=== PATIENT | female | born 1975 | race Caucasian/White ===

== ENCOUNTER 2016-12-13 13:30 | Observation (INO) | payer OTHER ==
--- NOTE | ~2016-12-13 | CT4 ---
[facility] A Service of [facility] & [facility] RADIOLOGY TEXT RESULTS PATIENT: JONO BIRD LOCATION: C2A : [birth year] UNIT #: [id number] AGE: [address]: PIETRO MARTINEZ JR MD SEX: F ORDER DR: [id number] [facility] [address] [facility]. [place], [place] [address] [id number] I MR#: [id number] #: [id number] NAME: JONO BIRD : 1975 SEX: F STUDY DATE/TIME: 12/13/2016 15:39 UNIT: C2A ROOM: [place] STUDY DESCRIPTION: CT Abd and Pelv Wo Cont Attending Physician: Pietro Martinez M.D. Ordering Physician: Jordan Richter M.D. MEDICAL IMAGING REPORT This report is preliminary unless electronic signature is present EXAM CT abdomen and pelvis without IV contrast. COMPARISON March 30, 2013, and January 26, 2013. INDICATIONS 41-year-old female with left flank and back pain as well as pleuritic chest pain for [address] exam was performed with one or more of the following radiation dose reduction techniques: automatic exposure control, adjustment of mA and/or kV according to patient size, and iterative reconstruction. FINDINGS Axial CT imaging abdomen and pelvis was performed without IV contrast. Coronal and sagittal reformats were constructed. Lack of IV contrast limits evaluation of adenopathy, vasculature and viscera. Multilevel mild degenerative facet disease of the lumbar spine. No acute fractures or suspicious osseous lesions. There are stable scarring versus atelectasis in the right lower lobe. There is a band-like atelectasis in the dependent left lower lobe. Gallbladder is contracted, limiting evaluation. No evidence of acute cholecystitis or radiopaque cholelithiasis. There is a tiny low-density area in the liver at the junction of the right and left hepatic lobes, measuring up to 3 mm, stable from March 2013, favoring a benign cyst or hemangioma. There is new marked left hydronephrosis with multiple renal calculi seen within the dilated calyces, as well as within the dilated pelvis. Some of these calculi appear to have formed facets and appear to be abutting each other. These findings are new from 2013. There is enlargement of the left kidney with thinning of the left renal cortex. There is a conglomerate of STS. [facility] A Service of [facility] RADIOLOGY TEXT RESULTS PATIENT: JONO BIRD LOCATION: [facility] [address] : [birth year] UNIT #: [id number] AGE: [address]: PIETRO MARTINEZ JR MD SEX: F ORDER DR: calculi seen in the renal pelvis measuring up to 3.5 cm x 2.7 cm with apparent rim-calcified calculus developing in the superior left renal kevin, measuring up to 2.9 cm. There is also an obstructing calculus in the proximal left ureter measuring up to 6 mm. The remainder of the left ureter is decompressed. Urinary bladder is decompressed. No evidence of right ureteral calculi. There are bilateral pelvic phleboliths. No definite adnexal masses on this noncontrast exam. There has been prior partial resection of the sigmoid colon. There is left perinephric stranding which appears mildly increased from comparison. Spleen is unremarkable. Unenhanced pancreas is within normal limits. The right adrenal gland is normal. There are multiple enlarged left retroperitoneal lymph nodes, the largest of which measures up to 2 cm per axis. Left adrenal gland appears to be displaced superiorly, but is, otherwise, normal. There is hepatomegaly. There appears to have been prior right hemicolectomy. No free fluid or pneumoperitoneum. Abdominal aorta is normal in course and caliber. IMPRESSION 1. New obstructive 6 mm calculus in the proximal left ureter. The left kidney is now markedly abnormal with enlargement and severe increasing left hydronephrosis and dilatation of the left renal pelvis. There are multiple calculi in the left renal pelvis in conglomerate measuring up to 3.5 cm x 2.7 cm with rim calcified calculus in the dilated superior pole renal kevin, measuring up to 2.9 cm with other calyceal calculi as well in the left kidney. There is increasing left perinephric stranding. 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 Urologic consultation is recommended. One could consider CT or MRI with IV contrast to further evaluate the kidney and exclude any suspicious masses on the left. 2. Stable 3 mm low-density lesion in the liver, most likely a benign cyst or hemangioma. 3. Prior partial sigmoid resection and right hemicolectomy. 4. Increasing adenopathy in the left retroperitoneum, largest lymph node measures up to 2 cm short axis. Given findins in the left kidney, neoplasm is thought less likely, and these findings are favored be reactive. Dictated by... Alistair Walker M.D. THIS IS AN ELECTRONICALLY VERIFIED REPORT Alistair Walker M.D. at 12/17/2016 4:27 PM CHARMAINE/court TD: 12/13/2016 17:24 JOB #: [id number] [facility] A Service of [facility] & [facility] RADIOLOGY TEXT RESULTS PATIENT: JONO BIRD LOCATION: [place] [address] : [birth year] UNIT #: [id number] AGE: [address]: PIETRO MARTINEZ JR MD SEX: F ORDER DR: MEDICAL IMAGING REPORT Page 1 of 1 COPY
--- NOTE | ~2016-12-13 | CO ---
Unit #: [id number] #: [id number] Patient: JONO BIRD [id number] [address] [place], [place] [address] [id number] I MR#: [id number] NAME: JONO BIRD ROOM: 215 Age: 41 Sex: F Admission Date: 12/13/2016 : 1975 Attending Physician: Tushar Martinez M.D. Consultation Date: 12/14/2016 CONSULTATION REPORT CHIEF COMPLAINT Left flank pain. HISTORY OF PRESENT ILLNESS Ms. Bird is a pleasant 41-year-old female, who presented to the ER last night with severe left-sided flank pain. She reports that the pain has been present for approximately 10 days and had been constant over that period of time. The pain was sharp in nature, localized to her left flank region, intermittent in nature, sharp and stabbing. She reports she had some mild nausea and one to two episodes of emesis over the past 10 days associated with pain. No gross hematuria. No previous history of kidney stones. She does have a history of left dismembered pyeloplasty [place] [address] Smith. She also has a history of colectomy and breast augmentation. In the ER, her creatinine was 0.8, her urinalysis demonstrated large leukocyte esterase, and positive nitrites, as well as 50 to 100 white cells per high-power field. Her white blood cell count was 12.6. CT scan demonstrated a 6-mm left UPJ stone with moderate hydronephrosis. PAST MEDICAL HISTORY Urinary tract infections, history of UPJ obstruction, ureteral stone. PAST SURGICAL HISTORY 1. Colectomy, status post colostomy revision. 2. Left dismembered pyeloplasty in 2013. 3. Breast augmentation. SOCIAL HISTORY One [id number] smoking history, denies drug use. FAMILY HISTORY No history of kidney stones. REVIEW OF SYSTEMS No headaches. Hearing normal. No epistaxis. No palpitations or chest pain. No shortness of breath. Denies joint pain. No recent skin rashes. No swollen glands or ankle swelling. No problems with vision. No sore throat. No anxiety or depression. No constipation. No black or bloody stools. review of systems is as above. MEDICATIONS None. ALLERGIES Unit #: [id number] #: [id number] Patient: JONO BIRD Penicillin, morphine. PHYSICAL EXAMINATION VITAL SIGNS: BP 145/93, heart rate 101, respiratory rate 18, temp 97.9. GENERAL: No apparent distress, comfortable, appears stated age. HEENT: Head is atraumatic. Normal hearing. Pupils are equal, round, and responsive to light. NECK: Supple, trachea midline. RESPIRATORY: Normal respiratory effort. Normal to palpation. CARDIOVASCULAR: Regular rate and rhythm, normal carotid pulses. ABDOMEN: Soft, left upper quadrant tenderness, left CVA tenderness. Nondistended. EXTREMITIES: No edema, no clubbing. SKIN: Warm and dry. NEUROLOGIC: Cranial nerves grossly intact. PSYCHIATRIC: Normal mood, normal affect. DIAGNOSTIC STUDIES LABORATORY RESULTS: As above. IMAGING STUDIES: As above. ASSESSMENT AND PLAN Ms. Bird is a 41-year-old female with a left obstructing ureteropelvic junction calculus. We discussed options for management, and given her active urinary tract infection, I will recommend that she undergo cystoscopy and left ureteral stent placement. She concurred. She understands that the stent is temporary and she will need additional surgeries to treat her stones. We will plan to keep her on IV Rocephin while cultures are pending. Dictated by... Chante Freeman/kennedy TD: 12/15/2016 02:02 JOB #: [id number] CONSULTATION REPORT Page 1 of 1 X X CONSULTATION REPORT
--- NOTE | ~2016-12-13 | OR ---
Unit #: [id number] #: [id number] Patient: JONO BIRD [id number] [address] [address] [id number] I MR#: [id number] NAME: JONO BIRD ROOM: [facility] Date of Procedure: 12/14/2016 Admission Date: 12/13/2016 Surgeon: Tushar Martinez M.D. : 1975 Attending Physician: Tushar Martinez M.D. OPERATIVE REPORT PREOPERATIVE DIAGNOSIS Left ureteral stone. POSTOPERATIVE DIAGNOSIS Left ureteral stone. PROCEDURES PERFORMED Cystoscopy; left retrograde pyelogram, independently reviewed by me; left ureteral stent placement. ANESTHESIA General. ESTIMATED BLOOD LOSS Minimal. COMPLICATIONS None. FINDINGS Severe hydronephrosis. Purulent renal pelvis aspirate, which was sent for culture. DESCRIPTION OF PROCEDURE After informed consent was obtained, the patient was taken to the operating room. General anesthesia was induced. She was placed in lithotomy position, prepped, and draped in standard fashion. Time-out was performed and all team members were in agreement. The rigid cystoscope was passed through the urethral meatus into the bladder without difficulty. The bladder was inspected carefully and demonstrated no tumors, stones, or foreign bodies. The left ureteral orifice was identified and was orthotopic. A Sensor wire was passed through the left ureteral orifice followed by a Pollack catheter. A retrograde pyelogram was then performed, which demonstrates a severe hydronephrosis down to the level of the UPJ. The hydronephrosis was severe. There was no clear opacity at the UPJ consistent with her known stone. Next, a 6 x 24 double-J ureteral stent was placed. No tether was left on the stent. The bladder was then drained and the procedure was terminated. Dictated by... Tushar Martinez M.D. Unit #: [id number] #: [id number] Patient: JONO BIRD JANENE/kennedy TD: 12/14/2016 22:27 JOB #: [id number] OPERATIVE REPORT Page 1 of 1 X X PROCEDURE OPERATIVE NOTE
--- NOTE | ~2016-12-13 | DS ---
Unit #: [id number] #: [id number] Patient: JONO BIRD [id number] [address] [address] [id number] I MR#: [id number] NAME: JONO BIRD ROOM: 215 Age: 41 Sex: F Admission Date: 12/13/2016 : 1975 Discharge Date: 12/16/2016 Attending Physician: Tushar Martinez M.D. Primary Care Physician: No Primary Care Physician DISCHARGE SUMMARY DIAGNOSIS Left ureteral stone. PROCEDURE Cystoscopy, left stent placement, retrograde pyelogram. PAST MEDICAL HISTORY Colectomy, pyeloplasty in 2013, breast augmentation. SOCIAL HISTORY Positive for smoking. Negative for drugs. FAMILY HISTORY Negative for stones. HOSPITAL COURSE The patient underwent cystoscopy and stent placement with Dr. Martinez. She will have outpatient treatment of her stone. She has a 6 mm proximal ureteral stone. The patient is to contact the office after she is discharged. She has a UTI with Proteus. She will be sent home on Bactrim and Pillager. The patient was afebrile today, tolerating p.o. intake well. ALLERGIES Penicillin and morphine. Dictated by... Ravindra Roberson M.D. STEPHANIE/audrey TD: 12/16/2016 12:49 JOB #: [id number] DISCHARGE SUMMARY Page 1 of 1 X Ravindra Roberson MD X DISCHARGE SUMMARY
[~2016-12-13 13:30] MED LIST: KEFLEX500 M1 PO; METRONIDAZOLE PO; NICOTINE TRANSD21 MG EXT; NORCO 5/325 TAB1 TAB PO; NORCO 7.5-3251 EACH PO; PERCOCET 10/3251 TAB PO; PERCOCET 7.5-31 EACH PO; PERCOCET 7.5/321 TAB PO; PERCOCET PO; XANAX1 MG PO
[2016-12-13 15:13] LABS: URINE SOURCE CLEAN CATCH
[2016-12-13 15:19] LABS: URINE APPEARANCE CLOUDY; URINE BILIRUBIN NEG (NEG); URINE BLOOD TRACE (NEG); URINE COLOR YELLOW; URINE GLUCOSE NEG (NEG); URINE KETONE NEG (NEG); URINE LEUKOCYTE ESTERASE 3+ (NEG); URINE NITRATE POS (NEG); URINE PROTEIN 1+ (NEG); URINE SPECIFIC GRAVITY 1.014 (1.003-1.035)
[2016-12-13 15:22] LABS: CULTURE INDICATED? YES; URINE BACTERIA AUWI 4+ (NEGATIVE); URINE SQUAMOUS EPITHELIAL CELL MOD /[HPF]; UWBCS1 AUWI 50-100 (0-5)
[2016-12-13 15:41] LABS: BASOPHIL% 0.1 % (0-2.5); EOSINOPHIL# 0.1 X10e3 (0-0.7); EOSINOPHIL% 0.6 % (0.0-7.0); HEMATOCRIT 41.2 % (35.0-45.0); HEMOGLOBIN 13.8 gm/dL (12.0-16.0); LYMPHOCYTE# 1.6 X10e3 (1.0-3.5); MEAN CELL VOLUME 82.5 FL (83-96); MEAN CORPUSCULAR HEMOGLOBIN 27.6 PG (28-34); MEAN CORPUSCULAR HGB CONC 33.4 g/dL (30-36); MEAN PLATELET VOLUME 7.4 FL (6.5-11.5); MONOCYTE# 0.9 X10e3 (0-1.0); MONOCYTE% 7.2 % (3.0-12.0); NEUTROPHIL% 79.1 % (40-75); PLATELET COUNT 383 X10e3 (140-420); RED CELL DISTRIBUTION WIDTH 14.9 % (11.0-15.5); WHITE BLOOD COUNT 12.6 X10e3 (4.0-10.5)
[2016-12-13 15:50] LABS: DIFF IND NO
[2016-12-13 16:00] LABS: CREATININE SERUM 0.8 mg/dL (0.6-1.4); POTASSIUM 3.2 mmol/L (3.5-5.1)
[2016-12-14 06:34] LABS: BASOPHIL% 0.3 % (0-2.5); EOSINOPHIL# 0.3 X10e3 (0-0.7); HEMATOCRIT 39.2 % (35.0-45.0); HEMOGLOBIN 12.6 gm/dL (12.0-16.0); LYMPHOCYTE# 2.7 X10e3 (1.0-3.5); MEAN CELL VOLUME 85.2 FL (83-96); MEAN CORPUSCULAR HEMOGLOBIN 27.5 PG (28-34); MEAN CORPUSCULAR HGB CONC 32.2 g/dL (30-36); MEAN PLATELET VOLUME 7.8 FL (6.5-11.5); MONOCYTE# 1.5 X10e3 (0-1.0); NEUTROPHIL# 10.3 X10e3 (1.5-7.1); NEUTROPHIL% 69.7 % (40-75); PLATELET COUNT 292 X10e3 (140-420); RED BLOOD COUNT 4.59 X10e (3.90-5.30); RED CELL DISTRIBUTION WIDTH 14.8 % (11.0-15.5); WHITE BLOOD COUNT 14.9 X10e3 (4.0-10.5)
[2016-12-14 06:38] LABS: DIFF IND NO
[2016-12-14 06:54] LABS: BUN/CREATININE RATIO 12.5; CALCIUM SERUM 8.2 mg/dL (8.4-10.2); CREATININE SERUM 0.8 mg/dL (0.6-1.4); POTASSIUM 3.4 mmol/L (3.5-5.1)
[2016-12-16 06:00] LABS: HEMATOCRIT 35.1 % (35.0-45.0); HEMOGLOBIN 11.5 gm/dL (12.0-16.0); MEAN CELL VOLUME 83.3 FL (83-96); MEAN CORPUSCULAR HEMOGLOBIN 27.3 PG (28-34); MEAN CORPUSCULAR HGB CONC 32.8 g/dL (30-36); MEAN PLATELET VOLUME 7.4 FL (6.5-11.5); RED BLOOD COUNT 4.21 X10e (3.90-5.30); RED CELL DISTRIBUTION WIDTH 15.4 % (11.0-15.5)
[2016-12-16] MEDS ORDERED: BACTRIM DS TAB1 EACH (08:50)
[2016-12-16] MEDS ORDERED: HYDROCODON-ACE1 EAC9 PO (08:50)
[2017-02-04] MEDS ORDERED: PERCOCET 7.5-31 EACH PO (14:36)
== END 2016-12-16 09:26 | disposition home or self-care (01) ==
LOC: CED 13:30 → CEDOF 19:52 → C2A 20:59
PROVIDERS: Emergency Medicine; Student in an Organized Health Care Education/Training Program; Urology
DX: N13.2 Hydronephrosis with renal and ureteral calculous obstruction (principal); N39.0 Urinary tract infection, site not specified; B96.4 Proteus (mirabilis) (morganii) as the cause of diseases classified elsewhere; F17.200 Nicotine dependence, unspecified, uncomplicated; Z88.0 Allergy status to penicillin; Z88.5 Allergy status to narcotic agent; K76.9 Liver disease, unspecified; Z90.49 Acquired absence of other specified parts of digestive tract
CPT/HCPCS: 36415; 74176; 80048; 81003; 84703; 85025; 85027; 87086; 87088; 87186; 96361; 96365; 96375; 96376; 99285; C2617; G0378; J0696; J1100; J1170; J1885; J2405; J2550; J3010

== ENCOUNTER → 2017-01-01 | Outpatient (CLI) | payer OTHER ==
[~2017-01-01] MED LIST changes: +BACTRIM DS TAB1 EACH; +HYDROCODON-ACE1 EAC9 PO; +PHENERGAN25 M1 PO
--- NOTE | ~2017-01-01 | NM29 ---
[facility] A Service of [facility] RADIOLOGY TEXT RESULTS PATIENT: JONO BIRD LOCATION: [facility] : [birth year] UNIT #: [id number] AGE: [address]: Jordan Smith MD SEX: F ORDER DR: [id number] [address] [place], [place] [address] [id number] O MR#: [id number] Acc #: [id number] NAME: JONO BIRD : 1975 SEX: F STUDY DATE/TIME: 01/01/2017 9:36 UNIT: [facility] ROOM: STUDY DESCRIPTION: NM Kidney Vasc Flow Sng W Attending Physician: Jordan Smith M.D. Referring Physician: Jordan Smith M.D. Ordering Physician: Jordan Smith M.D. Primary Care Physician: Armani Servin M.D. MEDICAL IMAGING REPORT This report is preliminary unless electronic signature is present EXAM Renal nuclear medicine flow and function study INDICATION Hydronephrosis. Evaluate renal function. COMPARISON CT scan 01/01/2017 which shows left hydronephrosis despite a double J ureteral stent. FINDINGS There are numerous calculi in the left renal pelvis. The patient was given 4.6 mCi of Tc99m MAG-3. Time activity curves were generated. The right kidney had normal flow and function reaching peak activity in 3 minutes and had a T-one-half of 12 minutes. The right kidney had 86% of the uptake. The left kidney shows very little accumulation. At 5 minutes, patient was given Lasix. There is very gradual decline of activity in the kidney. IMPRESSION 1. The right kidney is normal in flow and function and has 86% of the activity. 2. The left kidney has slow uptake after injection of the pharmaceutical. After Lasix was administered at 5 minutes, there is a very slow clearance from the kidney. T-one-half cannot be calculated. Dictated by... [facility] A Service of [facility] & [facility] RADIOLOGY TEXT RESULTS PATIENT: JONO BIRD LOCATION: [facility] : [birth year] UNIT #: [id number] AGE: [address]: Jordan Smith MD SEX: F ORDER DR: Dajuan Duran M.D. THIS IS AN ELECTRONICALLY VERIFIED REPORT Dajuan Duran M.D. at 01/02/2017 11:42 AM DANIEL/bel TD: 01/02/2017 07:08 JOB #: [id number] MEDICAL IMAGING REPORT Page 1 of 1 COPY
--- NOTE | ~2017-01-01 | CT3 ---
[facility] A Service of [facility] & [facility] RADIOLOGY TEXT RESULTS PATIENT: JONO BIRD LOCATION: [facility] : [birth year] UNIT #: [id number] AGE: [address]: Jordan Smith MD SEX: F ORDER DR: [id number] [place] [id number] [facility]. [place], [place] [address] [id number] O MR#: [id number] Acc #: [id number] NAME: JONO BIRD : 1975 SEX: F STUDY DATE/TIME: 01/01/2017 8:21 UNIT: [facility] ROOM: STUDY DESCRIPTION: CT Abd and Pelv WWo Cont Attending Physician: Jordan Smith M.D. Referring Physician: Jordan Smith M.D. Ordering Physician: Jordan Smith M.D. Primary Care Physician: Armani Servin M.D. MEDICAL IMAGING REPORT This report is preliminary unless electronic signature is present EXAM CT abdomen and pelvis with contrast HISTORY Left flank pain for 6 weeks and hematuria since December 12, 2016. Patient does have a history of kidney stones. TECHNIQUE Axial precontrast imaging was obtained through the abdomen and pelvis. This is followed by arterial and 90-second delayed phase imaging through the kidneys and 5-minute delayed-phase imaging through the abdomen and pelvis. This CT exam was performed with one or more of the following radiation dose reduction techniques: automatic exposure control, adjustment of mA and/or kV according to patient size, and iterative reconstruction. FINDINGS Images through the lung bases demonstrate scarring at the right lung base which is unchanged when compared to the prior study. A few tiny low-attenuation lesions are seen scattered throughout the liver which are suspected to reflect a benign lesion such as cysts and are unchanged since January of 2013. The stomach and proximal small bowel appear unremarkable. Gallbladder is within normal limits as are the spleen and pancreas. Patient is noted to have a punctate nonobstructing stone within the inferior pole of the right kidney. Since prior examination from November, a left-sided double-J ureteral stent has been placed. Multiple large stones are identified within the left renal collecting system. There is persistent dilatation of the left renal collecting system. On delayed phase imaging, patient is noted to have excreted contrast material outlining these dilated calyces and the left renal pelvis. There is some mild left perinephric soft tissue stranding. On prior study, the patient's kidney was much larger today. It appears STS. [facility] A Service of [facility] & [facility] RADIOLOGY TEXT RESULTS PATIENT: JONO BIRD LOCATION: [facility] : [birth year] UNIT #: [id number] AGE: [address]: Jordan Smith MD SEX: F ORDER DR: somewhat shrunken with marked cortical thinning. There is delayed and diminished enhancement of the left kidney when compared to the right but, again, patient does appear to have some function within that kidney as there is excreted contrast within the collecting system and also within the bladder. Patient is suspected to have some tiny cysts within the right kidney. There are postsurgical changes involving the sigmoid colon. There is no evidence mechanical bowel obstruction. Although there is extensive fecal burden seen within the colon which may reflect some underlying constipation, I do not see any free fluid or adenopathy within the abdomen. Urinary bladder appears normal. No aggressive osseous abnormalities are seen. Patient does have multiple cysts on the right ovary. Single largest measures up to 3.1 x 2.2 cm. IMPRESSION 1. This patient has undergone placement of a double-J ureteral stent on the left. On prior study, the patient's left kidney was enlarged and hydronephrotic. On today's study, it appears much smaller in size, although there is significant cortical thinning and persistent dilatation of the renal collecting system. There appears to be some form of debris within the left renal collecting system as excreted contrast material outlines it. Exact nature of this material is unclear. It really does not appear to enhance, which would argue against any neoplastic process, although that cannot be completely excluded as the patient is noted to have multiple shotty retroperitoneal nodes. I wonder if perhaps it is related to chronic inflammation within the left renal collecting system. Ultimately, biopsy may be required for definitive assessment. At a minimum, short-term CT follow up is recommended. The appearance on this particular exam is really not classic for XGP given that the kidney is not particularly enlarged, but XGP remains the main differential consideration, given dilatation of the left renal collecting system. 2. The kidney shows delayed and diminished enhancement, but it does have some function as, again, there is excreted contrast material within the left renal collecting system and within the bladder. 2. Patient is noted to have a nonobstructing stone within the inferior pole of the right kidney. 3. Suspected tiny right renal cysts. 4. Changes of prior sigmoid colon resection without evidence of obstruction although the patient does have fairly extensive fecal burden within the rectosigmoid which may reflect some constipation. 5. The patient is noted have several cysts on the right ovary. Single largest measures 3.1 x 2.2 cm. I suspect it is probably a benign finding in this 41-year-old woman as it was not present on the prior study from December 13, 2016. However a follow up pelvic ultrasound in 6 weeks could be considered to document stability or resolution. STAT * RESULT [facility] A Service of [facility] RADIOLOGY TEXT RESULTS PATIENT: JONO BIRD LOCATION: [facility] : [birth year] UNIT #: [id number] AGE: [address]: Jordan Smith MD SEX: F ORDER DR: Dictated by... Nadia Mcdonald M.D. THIS IS AN ELECTRONICALLY VERIFIED REPORT Nadia Mcdonald M.D. at 01/02/2017 9:44 AM AFF/aa TD: 01/01/2017 10:31 JOB #: [id number] MEDICAL IMAGING REPORT Page 1 of 1 COPY
== END | disposition home or self-care (01) ==
LOC: CCAT 12-30 10:40
DX: N28.89 Other specified disorders of kidney and ureter (principal); R10.9 Unspecified abdominal pain; N28.81 Hypertrophy of kidney; N13.30 Unspecified hydronephrosis; N20.0 Calculus of kidney; N83.201 Unspecified ovarian cyst, right side; Z96.0 Presence of urogenital implants
CPT/HCPCS: 74178; 78708; A9562; J1940; Q9967

== ENCOUNTER → 2017-02-04 | Outpatient (CLI) | payer OTHER ==
--- NOTE | ~2017-02-04 | EKG ---
PATIENT: JONO BIRD UNIT #: [id number] Ventricular Rate: 84 BPM Atrial Rate: 84 BPM P-R Interval: 150 ms QRS Duration: 80 ms Q-T Interval: 374 ms QTC Calculation(Bezet): 441 ms P Crawford: 76 degrees Calculated R Crawford: 77 degrees Calculated T Crawford: 67 degrees Diagnosis Line: Normal sinus rhythm Diagnosis Line: Possible Left atrial enlargement Diagnosis Line: Borderline ECG Diagnosis Line: No previous ECGs available Diagnosis Line: Confirmed by ALBA CONNELL MD ([id number]) on Diagnosis Line: 02/05/2017 7:25:15 AM INTERPRETING MD: CARINA
[2017-02-04 15:04] LABS: HEMATOCRIT 44.5 % (35.0-45.0); HEMOGLOBIN 14.6 gm/dL (12.0-16.0); MEAN CELL VOLUME 86.2 FL (83-96); MEAN CORPUSCULAR HEMOGLOBIN 28.2 PG (28-34); MEAN CORPUSCULAR HGB CONC 32.7 g/dL (30-36); RED BLOOD COUNT 5.16 X10e (3.90-5.30); RED CELL DISTRIBUTION WIDTH 15.7 % (11.0-15.5); WHITE BLOOD COUNT 12.5 X10e3 (4.0-10.5)
[2017-02-04 15:25] LABS: CALCIUM SERUM 8.9 mg/dL (8.4-10.2); GLOM FILT RATE Estimated 70.9 mL/min (>60); POTASSIUM 4.2 mmol/L (3.5-5.1)
== END | disposition home or self-care (01) ==
LOC: CAMB 13:16
PROVIDERS: Urology
DX: Z01.818 Encounter for other preprocedural examination (principal); N13.30 Unspecified hydronephrosis; N26.1 Atrophy of kidney (terminal)
CPT/HCPCS: 80048; 85027; 86850; 86900; 86901; 86923; 93005

== ENCOUNTER 2017-02-10 10:42 | Inpatient (IN) | payer OTHER ==
--- NOTE | ~2017-02-10 | XA166 ---
[facility] A Service of [facility] & [facility] RADIOLOGY TEXT RESULTS PATIENT: JONO BIRD LOCATION: C4B 451-01 : [birth year] UNIT #: [id number] AGE: [address]: Jordan Smith MD SEX: F ORDER DR: [id number] [place] [id number] [facility]. [place], [place] [address] [id number] I MR#: [id number] Acc #: [id number] NAME: JONO BIRD : 1975 SEX: F STUDY DATE/TIME: 02/11/2017 15:19 UNIT: [facility] ROOM: [facility] STUDY DESCRIPTION: XA PICC Line Placement WO Port Attending Physician: Jordan Smith M.D. Ordering Physician: Jordan Smith M.D. Primary Care Physician: Armani Servin M.D. MEDICAL IMAGING REPORT This report is preliminary unless electronic signature is present EXAM Right-sided PICC line placement INDICATION Need for IV access in a patient status post left nephrectomy. PRE-PROCEDURE The procedure was explained to the patient and/or patient sales representative facility services including risks, benefits, potential complications and potential for alternative forms of treatment. Informed consent was obtained, and prior to initiating the procedure a formal timeout procedure was performed. PROCEDURE Using full standard sterile barrier technique, including caps, gowns, gloves, masks, as well as sterile skin preparation and standard sterile draping, the right arm was prepped and draped in the usual fashion, and real-time sterile ultrasound guidance was used to localize an arm vein and to confirm vessel patency. A hard copy ultrasound image was recorded. After local anesthesia with 1% Xylocaine, the vein was punctured using real-time sterile ultrasound guidance, and an 0.018 guidewire was advanced into the superior vena cava, using fluoroscopic guidance. A 4-American single-lumen PICC was then measured and deployed with the tip positioned in the superior vena cava. The position of the line was documented with a radiographic image. The line was secured in place with an adhesive dressing and an antibiotic patch was applied. Total fluoro time was 0.1 minutes. A single fluoroscopic image was obtained. IMPRESSION Successful placement of a 4-American single-lumen PowerPICC via the arm under ultrasound and fluoroscopic guidance. The tip of the PICC is in good position in the superior vena cava. [facility] A Service of [facility] & [facility] RADIOLOGY TEXT RESULTS PATIENT: JONO BIRD LOCATION: [facility] 451-01 : [birth year] UNIT #: [id number] AGE: [address]: Jordan Smith MD SEX: F ORDER DR: Dictated by... Nadia Mcdonald M.D. THIS IS AN ELECTRONICALLY VERIFIED REPORT Nadia Mcdonald M.D. at 02/12/2017 5:10 PM AFF/aa TD: 02/12/2017 13:38 JOB #: [id number] MEDICAL IMAGING REPORT Page 1 of 1 COPY
--- NOTE | ~2017-02-10 | DS ---
Unit #: [id number] #: [id number] Patient: JONO BIRD [id number] [address] [address] [id number] MR#: [id number] NAME: JONO BIRD ROOM: [facility] Age: 41 Sex: F Admission Date: 02/10/2017 : 1975 Discharge Date: 02/14/2017 Attending Physician: Jordan Smith M.D. Primary Care Physician: Armani Servin M.D. DISCHARGE SUMMARY REASON FOR ADMISSION 1. Left atrophic kidney. 2. Recurrent pyelonephritis. DISCHARGE DIAGNOSES 1. Left atrophic kidney. 2. Recurrent pyelonephritis. PROCEDURES DURING ADMISSION Left nephrectomy. ADMITTING PHYSICIAN Dr. Smith. DISCHARGE PHYSICIAN Dr. Martinez. HOSPITAL COURSE The patient was taken to the OR on the day of admission for left simple nephrectomy. The patient tolerated the procedure well. She was transferred to the med/surg floor postoperatively. There, she maintained normal vital signs and laboratory values. Her pain was controlled with IV pain medication initially but transitioned to oral pain medication on February 13. She was seen to tolerate a regular diet, have flatus and bowel movements, and was able to ambulate without difficulty. She is deemed stable for discharge. DISCHARGE MEDICATIONS 1. Percocet. 2. Continue Xanax. 3. Continue Phenergan. DISCHARGE INSTRUCTIONS For fevers greater than 101.5, severe pain, inability to urinate, severe nausea, chest pain, shortness of breath, fevers, or other concerns, she is instructed to contact the urologist county home demonstrator or present to the local emergency room. FOLLOWUP The patient will follow up with Dr. Smith in two weeks to discuss the pathology results. Unit #: [id number] #: [id number] Patient: JONO BIRD Dictated by... Tushar Martinez M.D. JANENE/christopher TD: 02/14/2017 16:18 JOB #: [id number] DISCHARGE SUMMARY Page 1 of 1 X X DISCHARGE SUMMARY
--- NOTE | ~2017-02-10 | OR ---
Unit #: [id number] #: [id number] Patient: JONO BIRD [id number] [address] [place], [place] [address] [id number] Magi MR#: [id number] NAME: JONO BIRD ROOM: [facility] Date of Procedure: 02/10/2017 Admission Date: 02/10/2017 Surgeon: Jordan Smith M.D. : 1975 Attending Physician: Jordan Smith M.D. Primary Care Physician: Armani Servin M.D. PROCEDURE OPERATIVE NOTE PREOPERATIVE DIAGNOSIS Left nonfunctioning kidney with chronic pyelonephritis. POSTOPERATIVE DIAGNOSIS Left nonfunctioning kidney with chronic pyelonephritis. PROCEDURE PERFORMED Left simple nephrectomy. SURGEONS 1. Jordan Smith M.D. 2. Codie Galo, certified nuclear medicine technologist ANESTHESIA General. INDICATION FOR PROCEDURE Ms. Bird is a pleasant 41-year-old female with a poorly functioning left kidney. She has previously undergone pyeloplasty. She now has extensive nephrolithiasis. Renal function recently showed function to be at approximately 17%. The risks, benefits, and alternatives including bleeding, infection, damage to adjacent structures, and need for further surgery, as well as all other risks were discussed with the patient. She understands that this has the potential to be a very difficult operation due to her chronic infections and multiple previous surgeries. Fully informed consent was obtained, and she wished to proceed. DESCRIPTION OF PROCEDURE The patient was taken to the operating suite and appropriately identified. After the application of satisfactory general anesthetic, the patient was placed in the left flank position. All pressure points were padded to the satisfaction of the surgical, anesthetic, and nursing teams. I went off the tip of her 12th rib through her previous flank incision. Bovie electrocauterization was used to carry this through the fascial layers. The retroperitoneum was entered. The kidney was identified. We actually began at the upper pole as this was closer to being virgin tissue. We mobilized the upper pole of the kidney first. The tale of the pancreas and the spleen were mobilized off the upper pole. I elected to leave the adrenal gland, and this was released within Gerota's fascia. The peritoneum was swept medially. A Bookwalter self-retaining retractor was placed. I was able to identify the ureter and encircled this with a vessel loop. I dissected this up to the renal pelvis. The ureter was divided and ligated using a stapler and a 2-0 silk suture ligature, and Unit #: [id number] #: [id number] Patient: JONO BIRD the stent was removed with this as well in its entirety. I then mobilized the kidney laterally. At this point, I had the kidney mobilized completely with the exception of the hilum. I identified the aorta and dissected this up to the level of the hilum. The hilum was taken with a vascular TIFF stapler. There was a small bleeder at the staple line, and this was oversewn with a 3-0 Prolene [id number] suture. At this point, the kidney was passed off the table as specimen. The wound was inspected for hemostasis, and it was excellent. FloSeal was placed in the operative bed after copiously irrigating the wound. I elected to place a 15-Czech Yann drain due to the prior presence of infection. This was placed out of a lateral inferior stab incision. This was secured with a 2-0 silk drain stitch. I closed the fascia in two layers. The deep layer was closed with #1 Vicryl running stitch. The superficial layer was closed with #1 Vicryl interrupted ykgwmg-jr-ciezt sutures. The wound was again irrigated, and the skin was closed with helen. Local anesthetic with Marcaine was injected in the incision. The patient tolerated the procedure well without complications. Estimated blood loss was 50 mL. She was transported stable and extubated to the PACU. Dictated by... Chante Priest TD: 02/10/2017 17:38 JOB #: [id number] PROCEDURE OPERATIVE NOTE Page 1 of 1 X Jordan Smith MD X PROCEDURE OPERATIVE NOTE
[~2017-02-10 10:42] MED LIST changes: -PHENERGAN25 M1 PO
[2017-02-10 15:51] LABS: BASOPHIL% 0.3 % (0-2.5); EOSINOPHIL# 0.2 X10e3 (0-0.7); EOSINOPHIL% 1.2 % (0.0-7.0); HEMATOCRIT 38.7 % (35.0-45.0); HEMOGLOBIN 12.7 gm/dL (12.0-16.0); LYMPHOCYTE# 4.5 X10e3 (1.0-3.5); LYMPHOCYTE% 29.4 % (17.0-45.0); MEAN CELL VOLUME 85.6 FL (83-96); MEAN CORPUSCULAR HEMOGLOBIN 28.2 PG (28-34); MEAN CORPUSCULAR HGB CONC 32.9 g/dL (30-36); MEAN PLATELET VOLUME 6.4 FL (6.5-11.5); MONOCYTE# 0.8 X10e3 (0-1.0); MONOCYTE% 5.4 % (3.0-12.0); NEUTROPHIL# 9.8 X10e3 (1.5-7.1); NEUTROPHIL% 63.7 % (40-75); PLATELET COUNT 412 X10e3 (140-420); RED BLOOD COUNT 4.52 X10e (3.90-5.30); RED CELL DISTRIBUTION WIDTH 15.6 % (11.0-15.5); WHITE BLOOD COUNT 15.4 X10e3 (4.0-10.5)
[2017-02-10 15:52] LABS: DIFF IND YES
[2017-02-10 16:16] LABS: BUN/CREATININE RATIO 16.25; CALCIUM SERUM 8.4 mg/dL (8.4-10.2); CREATININE SERUM 0.8 mg/dL (0.6-1.4); POTASSIUM 3.6 mmol/L (3.5-5.1)
[2017-02-10 16:18] LABS: PLATELET ESTIMATE NORMAL (NORMAL)
[2017-02-10] MEDS ORDERED: PHENERGAN25 M1 PO (17:35)
[2017-02-10] MEDS ORDERED: XANAX1 MG PO (17:35)
[2017-02-11 18:14] LABS: BASOPHIL% 0.3 % (0-2.5); EOSINOPHIL# 0.1 X10e3 (0-0.7); EOSINOPHIL% 0.7 % (0.0-7.0); HEMATOCRIT 35.8 % (35.0-45.0); HEMOGLOBIN 11.6 gm/dL (12.0-16.0); LYMPHOCYTE# 1.8 X10e3 (1.0-3.5); LYMPHOCYTE% 14.4 % (17.0-45.0); MEAN CELL VOLUME 86.1 FL (83-96); MEAN CORPUSCULAR HGB CONC 32.5 g/dL (30-36); MONOCYTE# 0.7 X10e3 (0-1.0); MONOCYTE% 5.9 % (3.0-12.0); NEUTROPHIL# 9.9 X10e3 (1.5-7.1); NEUTROPHIL% 78.7 % (40-75); PLATELET COUNT 373 X10e3 (140-420); RED BLOOD COUNT 4.15 X10e (3.90-5.30); RED CELL DISTRIBUTION WIDTH 15.6 % (11.0-15.5); WHITE BLOOD COUNT 12.6 X10e3 (4.0-10.5)
[2017-02-11 18:18] LABS: DIFF IND NO
[2017-02-11 18:34] LABS: BUN/CREATININE RATIO 8.57; CALCIUM SERUM 8.3 mg/dL (8.4-10.2); CREATININE SERUM 0.7 mg/dL (0.6-1.4); GLOM FILT RATE Estimated 109.1 mL/min (>60)
== END 2017-02-14 15:37 | disposition home or self-care (01) | DRG 661 ==
LOC: CSUR 10:42 → C4B 15:15 → CPACUOF 15:15 → CSUR 15:28 → C4B 17:23 → CPACUOF 17:23 → C4B 17:23
PROVIDERS: Urology
PROC: 0TT10ZZ Resection of Left Kidney, Open Approach (ICD-10-PCS; principal; 2017-02-10 12:30)
PROC: 02HV33Z Insertion of Infusion Device into Superior Vena Cava, Percutaneous Approach (ICD-10-PCS; 2017-02-11)
PROC: B518YZA Fluoroscopy of Superior Vena Cava using Other Contrast, Guidance (ICD-10-PCS; 2017-02-11)
PROC: B548ZZA Ultrasonography of Superior Vena Cava, Guidance (ICD-10-PCS; 2017-02-11)
DX: N26.1 Atrophy of kidney (terminal) (principal); F17.210 Nicotine dependence, cigarettes, uncomplicated; N11.9 Chronic tubulo-interstitial nephritis, unspecified
CPT/HCPCS: 76937; 77001; 80048; 85025; 88307; C1751; J0131; J0330; J0696; J1170; J1650; J1885; J2250; J2270; J2405; J2550; J2710; J3010

== ENCOUNTER → 2017-04-10 | Outpatient (CLI) | payer OTHER ==
[~2017-04-10] MED LIST changes: +PHENERGAN25 M1 PO
[2017-04-10 17:19] LABS: HEMATOCRIT 43.7 % (35.0-45.0); HEMOGLOBIN 15.2 gm/dL (12.0-16.0); MEAN CELL VOLUME 86.8 FL (83-96); MEAN CORPUSCULAR HEMOGLOBIN 30.1 PG (28-34); MEAN CORPUSCULAR HGB CONC 34.7 g/dL (30-36); MEAN PLATELET VOLUME 6.8 FL (6.5-11.5); RED BLOOD COUNT 5.03 X10e (3.90-5.30); RED CELL DISTRIBUTION WIDTH 14.3 % (11.0-15.5); WHITE BLOOD COUNT 8.9 X10e3 (4.0-10.5)
[2017-04-10 17:41] LABS: BUN/CREATININE RATIO 10.9; CALCIUM SERUM 9.5 mg/dL (8.4-10.2); CREATININE SERUM 1.1 mg/dL (0.6-1.4); GLOM FILT RATE Estimated 63.2 mL/min (>60); POTASSIUM 4.2 mmol/L (3.5-5.1)
== END | disposition home or self-care (01) ==
LOC: SLAB 16:18
PROVIDERS: Urology
DX: Z01.812 Encounter for preprocedural laboratory examination (principal); N21.0 Calculus in bladder; N39.0 Urinary tract infection, site not specified
CPT/HCPCS: 36415; 80048; 85027

== ENCOUNTER 2017-04-25 14:54 | Emergency (ER) | payer OTHER ==
[~2017-04-25] VITALS: Ht 160 cm; Wt 52.2 kg
--- NOTE | ~2017-04-25 | CT4 ---
[facility] A Service of [facility] & [facility] RADIOLOGY TEXT RESULTS PATIENT: JONO BIRD LOCATION: [facility] : [birth year] UNIT #: [id number] AGE: [address]: Alfredo Cowart MD SEX: F ORDER DR: [id number] [facility] [place], [place] [address] [id number] MR#: [id number] Acc #: [id number] NAME: JONO BIRD : 1975 SEX: F STUDY DATE/TIME: 04/25/2017 20:00 UNIT: [facility] ROOM: STUDY DESCRIPTION: CT Abd and Pelv Wo Cont Attending Physician: Alfredo Cowart M.D. Ordering Physician: Alfredo Cowart M.D. Primary Care Physician: Armani Servin M.D. MEDICAL IMAGING REPORT This report is preliminary unless electronic signature is present EXAM CT abdomen and pelvis without contrast 04/25/2017 20 o'clock hours. HISTORY 41-year-old woman with complaint of right flank pain and blood in urine today. History of the left nephrectomy 8 weeks ago. History of kidney stones. COMPARISON CT abdomen and pelvis 01/01/2017. TECHNIQUE Helical noncontrasted images were obtained from the lung bases through the pubic symphysis. Sagittal and coronal reconstructions were performed. Total exam DLP 57 5 mGy-cm. This CT exam was performed with one or more of the following radiation dose reduction techniques: automatic exposure control, adjustment of mA and/or kV according to patient size, and iterative reconstruction. FINDINGS Images through the lung bases demonstrate band-like scarring in the lateral right lung base. There is no acute pulmonary density or effusion. The distal esophagus is normal. Images through the abdomen demonstrate a normal noncontrasted appearance of the liver, spleen, pancreas, gallbladder and bile ducts. There are clips indicative of interval left nephrectomy since the CT of 01/01/2017. The right kidney demonstrates a punctate stone in the lower pole which is unchanged. There is no dilatation of the right renal collecting system or right ureter. There are bilateral lower pelvic phleboliths unchanged. The bladder appears normal. STS. [facility] A Service of [facility] & [facility] RADIOLOGY TEXT RESULTS PAT[facility]: [facility]IRD [id number] [birth year] UNIT #: [id number] AGE: [address]: Alfredo Cowart MD SEX: F ORDER DR: Stomach and small bowel appear normal. There is gas in the colon. There is evidence of previous distal colonic anastomosis which is stable. IMPRESSION 1. Interval left nephrectomy with no evidence of hematoma. 2. Right kidney demonstrates a punctate nonobstructing stone in the lower pole. There is no ureteral dilatation or ureteral calculus. The bladder appears normal. 3. Stable linear scarring at the right lung base. 4. Area of colonic anastomosis in the sigmoid colon with increase stool in the rectosigmoid colon only. Dictated by... Joy Breen M.D. THIS IS AN ELECTRONICALLY VERIFIED REPORT Joy Breen M.D. at 04/27/2017 9:03 AM Anibal TD: 04/27/2017 07:13 JOB #: [id number] MEDICAL IMAGING REPORT Page 1 of 1 COPY
[2017-04-25 16:05] LABS: BASOPHIL% 0.2 % (0-2.5); EOSINOPHIL% 0.2 % (0.0-7.0); HEMATOCRIT 45.1 % (35.0-45.0); HEMOGLOBIN 15.3 gm/dL (12.0-16.0); LYMPHOCYTE# 2.8 X10e3 (1.0-3.5); LYMPHOCYTE% 20.8 % (17.0-45.0); MEAN CELL VOLUME 86.4 FL (83-96); MEAN CORPUSCULAR HEMOGLOBIN 29.4 PG (28-34); MEAN PLATELET VOLUME 6.8 FL (6.5-11.5); MONOCYTE# 0.8 X10e3 (0-1.0); MONOCYTE% 5.9 % (3.0-12.0); NEUTROPHIL# 9.8 X10e3 (1.5-7.1); NEUTROPHIL% 72.9 % (40-75); PLATELET COUNT 434 X10e3 (140-420); RED BLOOD COUNT 5.21 X10e (3.90-5.30); RED CELL DISTRIBUTION WIDTH 14.6 % (11.0-15.5); WHITE BLOOD COUNT 13.4 X10e3 (4.0-10.5)
[2017-04-25 16:07] LABS: DIFF IND NO
[2017-04-25 16:19] LABS: INR 0.9; PARTIAL THROMBOPLASTIN TIME 25.3 SECONDS (23.5-31.3); PROTHROMBIN TIME (PATIENT) 9.9 SECONDS (10.0-11.7)
[2017-04-25 16:32] LABS: ALBUMIN SERUM 4.8 g/dL (3.5-5.0); BILIRUBIN, DIRECT 0.1 mg/dL (0.0-0.2); BILIRUBIN,INDIRECT 0.7 mg/dL (0.0-0.9); BILIRUBIN,TOTAL 0.8 mg/dL (0.2-2.0); CALCIUM SERUM 9.7 mg/dL (8.4-10.2); GLOM FILT RATE Estimated 70.9 mL/min (>60); POTASSIUM 3.5 mmol/L (3.5-5.1); PROTEIN TOTAL SERUM 8.2 g/dL (6.0-8.3)
[2017-04-25 17:47] LABS: URINE SOURCE CLEAN CATCH
[2017-04-25 17:55] LABS: URINE APPEARANCE CLEAR; URINE BILIRUBIN NEG (NEG); URINE BLOOD 3+ (NEG); URINE COLOR YELLOW; URINE GLUCOSE NEG (NEG); URINE KETONE NEG (NEG); URINE LEUKOCYTE ESTERASE NEG (NEG); URINE NITRATE NEG (NEG); URINE PH 5.5 (5-8); URINE PROTEIN TRACE (NEG); URINE SPECIFIC GRAVITY 1.026 (1.003-1.035)
[2017-04-25 17:58] LABS: CULTURE INDICATED? YES; U HYALINE CASTS AUWI 0-2 /[LPF]; URBCS1 AUWI 25-50 /[HPF] (0-2); URINE BACTERIA AUWI 1+ (NEGATIVE); URINE SQUAMOUS EPITHELIAL CELL OCC /[HPF]
== END 2017-04-25 21:12 | disposition home or self-care (01) ==
LOC: CED 14:54
PROVIDERS: Emergency Medicine
DX: R10.9 Unspecified abdominal pain (principal); F17.200 Nicotine dependence, unspecified, uncomplicated; Z88.0 Allergy status to penicillin; Z88.5 Allergy status to narcotic agent
CPT/HCPCS: 36415; 74176; 80048; 80076; 81003; 84703; 85025; 85610; 85730; 87086; 99284; J1170